=== PATIENT | male | born 2005 | race African-American/Black ===

== ENCOUNTER 2024-05-30 15:06 | Emergency (ER) | payer OTHER, SELFPAY ==
[2024-05-30 15:07] VITALS: BP 111/88; PULSE 67; RESP 14; TEMP 36.8; O2SAT 99; BMI 17.4
--- NOTE | 2024-05-30 15:53 | RAD_ITS ---
STUDY: X-RAY - LEFT HAND REASON FOR EXAM: Male, 19 years old. bite to thumb TECHNIQUE: 3 view(s) of the hand. COMPARISON: None. FINDINGS: Normal radiocarpal articulation. Normal distal radioulnar joint. Normal visualized carpal bones. Normal carpal articulations Normal carpometacarpal articulation of the thumb. Normal second through fifth carpometacarpal joints. Normal metacarpi. Normal metacarpophalangeal joint of the thumb. Normal interphalangeal joint of the thumb. Normal proximal and distal phalanges of the thumb. Normal metacarpophalangeal joints of the second through fifth fingers. Normal proximal and distal interphalangeal joints of the second through fifth fingers. Normal phalanges of the second through fifth fingers. The soft tissue structures are unremarkable. RAD/Hand Min 3 Views IMPRESSION: Normal x-ray examination of the hand. Electronically Signed: Favio Groves MD at 16:17 EDT ,
[2024-05-30] MEDS: Diphth,Pertuss(Acell),Tet Vac 0.5 ML Vial IM (16:29)
--- NOTE | 2024-05-30 16:31 | EDS_ITS ---
HPI History of Present Illness Chief Complaint: Bite Narrative Narrative: Patient is a 19-year-old male with no known significant past medical history who presented to the emergency department the chief complaint of being bit in the left thumb by a squirrel. Patient states that the squirrel was on the ground and noted that he went to pick it up and when he attempted to pick the squirrel up he noted that it bit him and ran away. Patient states that he is unsure when his last tetanus shot was. Patient was unsure if he needed a rabies shots are not prompting him to come here further evaluation management. Patient denies any other complaints at this point time denies any pain. PFSH PFS Medical History no medical history Allergy/AdvReac Type Severity Reaction Status Date / Time No Known Allergies Allergy Verified 05/30/24 15:09 ROS ROS ED ROS Narrative Constitutional: Denies fevers, chills, headaches, lightness, dizziness Eyes: Denies change in vision double vision blurry vision Cardiovascular: Denies chest pain or palpitations Respiratory: Denies shortness of breath Abdomen: Denies nausea vomit diarrhea Neurological: Denies any urinary symptoms Musculoskeletal: Complains of a bite to his left thumb Skin: Denies rashes or lesions EXAM Physical Exam Narrative Exam Narrative: General: Patient lying in bed rest comfortably did not appear to be in acute distress Head: Atraumatic, normocephalic Eyes: PERRL bilateral, EOMI bilateral, no conjunctival injection noted Neck: Soft, supple, trachea midline Cardiovascular: Regular rate and rhythm no murmurs gallops rubs noted Respiratory: Clear to auscultation bilaterally Extremities: Patient has small bite wound to the left volar aspect of his thumb. Patient has full flexion extension capabilities of his thumb and the rest of his fingers. Radial pulse +2/4 in the bilateral extremities, patient giving thumbs up sign okay sign and oppose his thumb to his pinky bilaterally without any difficulty Neurological: Patient following commands knew that he was at [facility] years 2023. Sensation grossly intact in median ulnar and radial nerve distribution bilaterally Skin: Warm, dry, intact, see extremity Const Vital Signs: 05/30/24 15:07 Temperature 98.3 F Temperature Source Temporal Pulse Rate 67 Respiratory Rate 14 Blood Pressure 111/88 H Blood Pressure Mean 95 Pulse Ox 99 Oxygen Delivery Method Room Air MDM MDM MDM Narrative Medical decision making narrative: Patient is a 19-year-old male who presented to the emergency department with a chief complaint of being bitten the thumb by a squirrel and concern for possibly needing a rabies vaccination. Patient will have a workup performed here on the differential diagnose includes but not limited to squirrel bite, retained foreign body. Once workup is obtained reviewed he will be reevaluated. Patient's X-ray of his left hand showed no acute findings this is reviewed by myself and by radiology. At this point time patient's tetanus shot was updated here in the emergency department. The patient does not require rabies vaccination as squirrels have very low chances/risk at caring rabies themselves. Patient was advised to keep a close eye on the wound keep it clean and follow- up with his primary care physician outpatient setting. He is encouraged return with worsening symptoms or any other concerns. All question concerns answered he is discharged home in stable condition. Radiography Diagnostic Testing: Clinical Impression(s) from Imaging Studies Hand X-Ray 05/30/24 15:53 IMPRESSION: Normal x-ray examination of the hand. Electronically Signed: Favio Groves MD at 16:17 EDT , Discharge Plan Triage Chief Complaint: Bite ED Provider: Erickson Wong Dx/Rx/DC Orders Clinical Impression: Animal bite Primary Care Provider: Care Physician,No Primary Referrals: Care Physician,No Primary [Primary Care Provider] - Arpit Blount MD [Med Staff - Cocktail Lounge Manager] - Activity Restrictions/Additional Instructions: Keep a close eye on the wound and watch out for signs of infection such as surrounding redness, purulent discharge increasing pain swelling or any other concerns return to the emergency department. Follow-up with your primary care physician for which she referred to 1. Your tetanus shot was updated here today. There is a very low risk of squirrels carrying rabies therefore no rabies vaccination given here today. Print Language: Chinese Disposition Disposition: Home, Self Care
[2024-05-30 17:07] VITALS: BP 112/75; PULSE 78; RESP 16; O2SAT 99
[2024-05-30] MEDS: Rabies Immune Globulin/PF 300 UNIT/ML, 5 ML VIAL 1170 UNIT IM (17:25)
[2024-05-30] MEDS: Rabies Vaccine,Human Diploid 2.5 UNITS Vial IM (17:28)
[2024-05-30 18:44] VITALS: BP 112/70; PULSE 67; RESP 18; TEMP 35.8; O2SAT 99
== END 2024-05-30 18:45 | disposition home or self-care (01) ==
PROVIDERS: Emergency Provider Emergency Medicine; Visit Provider Emergency Medicine
DX: S60.372A Other superficial bite of left thumb, initial encounter (principal); W53.21XA Bitten by squirrel, initial encounter; Z23 Encounter for immunization
CPT/HCPCS: 73130; 90471; 90675; 90715; 96372; 99283; J7030; 90375; A4216

== ENCOUNTER → 2024-06-02 | Outpatient (CLI) | payer OTHER, SELFPAY ==
[2024-06-02 14:33] VITALS: BP 112/67; PULSE 73; RESP 16; TEMP 36.8; O2SAT 100; BMI 17.2
[2024-06-02] MEDS: Rabies Vaccine,Human Diploid 2.5 UNITS Vial IM (14:50)
[2024-06-02 15:06] VITALS: BMI 17.2
== END | disposition home or self-care (01) ==
DX: S60.371A Other superficial bite of right thumb, initial encounter (principal); W53.21XA Bitten by squirrel, initial encounter; Y93.89 Activity, other specified; Z23 Encounter for immunization
CPT/HCPCS: 90675; 96372

== ENCOUNTER 2024-06-06 15:20 | Outpatient (CLI) | payer OTHER, SELFPAY ==
[2024-06-06 15:21] VITALS: BP 125/79; PULSE 92; RESP 18; TEMP 36.7; O2SAT 99; BMI 17.3
[2024-06-06 15:56] VITALS: BP 123/70; PULSE 88; RESP 16; TEMP 36.6; O2SAT 100; BMI 17.3
[2024-06-06] MEDS: Rabies Vaccine,Human Diploid 2.5 UNITS Vial IM (15:56)
== END 2024-06-06 16:20 | disposition home or self-care (01) ==
PROVIDERS: Visit Provider Emergency Medicine
DX: Z20.3 Contact with and (suspected) exposure to rabies (principal); Z23 Encounter for immunization
CPT/HCPCS: 96372; 90675

== ENCOUNTER 2024-06-13 17:34 | Outpatient (CLI) | payer OTHER, SELFPAY ==
[2024-06-13 17:34] VITALS: BP 123/84; PULSE 75; RESP 18; TEMP 36.6; O2SAT 98; BMI 17.7
[2024-06-13] MEDS: Rabies Vaccine,Human Diploid 2.5 UNITS Vial IM (17:48)
[2024-06-13 17:49] VITALS: BP 112/57; PULSE 62; RESP 18; TEMP 37.1; O2SAT 97; BMI 17.7
== END 2024-06-13 20:07 | disposition home or self-care (01) ==
DX: Z20.3 Contact with and (suspected) exposure to rabies (principal); Z23 Encounter for immunization
CPT/HCPCS: 90675; 96372